=== PATIENT | male | born 1955 | race Caucasian/White ===

== ENCOUNTER 2017-08-19 10:47 | Outpatient (CLI) | payer OTHER ==
[~2017-08-19] VITALS: Ht 167.6 cm; Wt 90.7 kg
[2017-08-19] MEDS ORDERED: SUMA1TAB PO (14:10)
[2017-08-19] MEDS ORDERED: VNL75T PO (14:10)
[2017-08-19] MEDS ORDERED: FENO134C PO (14:10)
[2017-08-19] MEDS ORDERED: PRD20T PO (14:10)
== END 2017-08-19 14:15 ==
LOC: PREOP 10:47
PROVIDERS: ATTEND Internal Medicine
DX: Z01.818 Encounter for other preprocedural examination (principal); Z12.11 Encounter for screening for malignant neoplasm of colon

== ENCOUNTER 2017-08-22 08:02 | Day surgery (SDC) | payer OTHER ==
--- NOTE | 2017-08-20 09:09 | HISTORY AND PHYSICAL ---
DATE OF SERVICE: COLONOSCOPY HISTORY AND PHYSICAL HISTORY OF PRESENT ILLNESS: The patient is a 61-year-old white male, who presented to the office on the for followup of Meniere's disease. It has been a little over 10 years since his last screening colonoscopy that occurred in 2006. He had a normal evaluation at that time. He reports that he has had some occasional fullness in his right ear, little bit of a popping noise, but has not had any significant perceived decline in hearing, has had no vertigo or sustained tinnitus. He has been under some stress having to work, nearly doubled time exceeding 80 hours per week for the past several months and has not had the time to engage any regular exercise. Although, he does move at work a fair amount. They have hired some additional help as they have become short staffed and his work load is back the usual full-time employment. He denies any increased dyspnea on exertion over baseline, chest discomfort and has had no syncope or presyncope. He denies abdominal pain, change in appetite, weight loss or weight gain, constipation, diarrhea, bright red blood per rectum or melena. PHYSICAL EXAMINATION: GENERAL: Reveals a well appearing white male, well kempt, normal affect, in no acute distress. VITAL SIGNS: Blood pressure 126/84. HEENT: Did reveal right-sided cerumen, occlusion. He underwent ear lavage with normal TMs and ear canals post-procedure. NECK: Revealed no JVD, adenopathy or bruits. CHEST: Clear. CARDIOVASCULAR: Reveals a regular rate and rhythm without murmur, S3 or S4. ABDOMEN: Soft, supple without mass, organomegaly or tenderness. EXTREMITIES: Reveal no cyanosis, clubbing or edema. SKIN: Evaluation revealed no suspicious nevi. ASSESSMENT AND PLAN: 1. Cerumen impaction right ear which may have been the cause of hearing changes that he had noted intermittently. 2. The patient was set up for screening colonoscopy 08/22/2017. Prep instructions with Suprep kit were given and questions were answered. 3. Meniere's disease, clinically stable. We will see him back in 6 months for yearly wellness evaluation and we will obtain a chemistry panel, lipid panel and a PSA at that time. Job ID: [id number] DocumentID: [id number] Dictated Date: 08/19/2017 10:50:10 Benefits Specialist Recruiter Date: 08/19/2017 11:44:08 Dictated By: IVONE MARIA MD MTDD
[~2017-08-22] VITALS: Ht 167.6 cm; Wt 90.7 kg
[~2017-08-22 08:02] MED LIST: FENO134C PO; PRD20T PO; SUMA1TAB PO; VNL75T PO
[2017-08-22] MEDS ORDERED: 1/2 NS IV SOLUTION 1,000 ML IV STA (08:31)
[2017-08-22] MEDS ORDERED: 1/2 NS IV SOLUTION 1,000 ML IV ONE (08:33)
[2017-08-22 08:45] VITALS: BP 132/90
[2017-08-22] MEDS ORDERED: LIDOCAINE JELLY 2% (XYLOCAINE) 5 ML TUBE MM PRN (08:45)
[2017-08-22] MEDS ORDERED: MIDAZOLAM 2 MG/2 ML (VERSED) VIAL IVP PRN (08:45)
--- NOTE | 2017-08-22 08:46 | Pre-Op Note & Conscious Sedat ---
Pre-Operative Progress Note H&P Reviewed The H&P was reviewed, patient examined and no changes noted. Date H&P Reviewed: Aug 22, 2017 Time H&P Reviewed: 08:45 Conscious Sedation Pre-Proced ASA Class: 1 Airway Mallampati Classification: ([place] appropriate class) I. II. III, IV Lungs Heart ASA score ASA 1: a normal healthy patient ASA 2: a patient with a mild systemic disease (mid diabetes, controlled hypertension, obesity ASA 3: a patient with a severe systemic disease that limits activity (angina , COPD, prior Myocardial infarction) ASA 4: a patient with an incapacitating disease that is a constant threat to life (CHF, renal failure) ASA 5: a moribund patient not expected to survive 24 hrs. (ruptured aneurysm) ASA 6: a declared brain patient whose organs are being harvested. For emergent operations, add the letter E after the classification Grade 2 Sedation Plan: Analgesia, Amnesia, Plan communicated to team members, Discussed options with patient/fam, Discussed risks with patient/fam Note The patient is an appropriate candidate to undergo the planned procedure, sedation, and anesthesia. The patient immediately re-assessed prior to indication. IVONE MARIA MD Aug 22, 2017 08:46
[2017-08-22] MEDS ORDERED: LIDOCAINE JELLY 2% (XYLOCAINE) 5 ML TUBE ONE (10:03)
[2017-08-22] MEDS ORDERED: fentaNYL INJECTION 100 MCG/2 ML AMP ONE (10:03)
[2017-08-22] MEDS ORDERED: MIDAZOLAM 2 MG/2 ML (VERSED) VIAL ONE ×2 (10:03)
[2017-08-22] MEDS: fentaNYL INJECTION 100 MCG/2 ML AMP IVP PRN ×2 (10:40→10:55)
[2017-08-22 11:20] VITALS: BP 118/73
[2017-08-22 11:55] VITALS: BP 131/93
[2017-08-22 11:59] VITALS: BP 131/93
--- NOTE | 2017-08-22 23:31 | OPERATIVE REPORT ---
DATE OF SERVICE: COLONOSCOPY SUMMARY INDICATION FOR THE PROCEDURE: Screening colonoscopy. The patient was placed in the left lateral decubitus position. Prior to undergoing colonoscopy, digital rectal evaluation was performed. Anal sphincter tone was normal and the perianal reflexes intact. The prostate was normal in size, anodular and nontender digital inspection. No abnormalities, no digital inspection of the distal rectal vault and anal canal. The colonoscope was then inserted into the rectum and under direct visualization advanced to the cecum. The cecum was identified by identification of the ileocecal valve and cecal strap. Photographic documentation was obtained. A careful inspection was made as the colonoscope was withdrawn. The patient tolerated the procedure well. FINDINGS: There was no evidence for internal or external hemorrhoids and the rectum was unremarkable. The sigmoid colon, descending colon as well as splenic flexure are unremarkable. Present in the middle transverse colon with some appearance to the mucosa that with air insufflation and monitoring did not change compared more normal looking mucosa adjacent. There was no inflammation change, it was concerning for an early flat adenoma. It was photographed and biopsied and ablated and submitted for histopathology. Remainder of the transverse colon, hepatic flexure, ascending colon and cecum were unremarkable. ASSESSMENT: Questionable flat adenoma noted in the mid transverse colon was present with otherwise normal colonoscopy to cecum. We will have to await histopathology report before advocating future colon screening interval. Job ID: [id number] DocumentID: [id number] Dictated Date: 08/22/2017 11:42:34 Torpedo Specialist Date: 08/22/2017 23:30:45 Dictated By: IVONE MARIA MD
== END 2017-08-22 12:01 | disposition home or self-care (01) ==
LOC: ENDO 08:02
PROVIDERS: ATTEND Internal Medicine
DX: Z12.11 Encounter for screening for malignant neoplasm of colon (principal); K63.89 Other specified diseases of intestine

== ENCOUNTER → 2020-07-24 | Outpatient (CLI) | payer BC, OTHER ==
[~2020-07-24] MED LIST changes: -SUMA1TAB PO; +SUMA1TAB12 PO
--- NOTE | 2020-07-24 09:00 | Diagnostic Imaging Report ---
PROCEDURE: MR imaging cervical spine without contrast. TECHNIQUE: Multiplanar, multisequence MR imaging of the cervical spine was performed without contrast. DATE: July 24, 2020. COMPARISON: None. INDICATION: 64-year-old male, right arm weakness, numbness, and pain. Neck pain. FINDINGS: There is a cervical dextrocurvature. There is grade 1 retrolisthesis of C5 on C6. There is no evidence of a diffuse marrow infiltrating or replacing process. There is no identified abnormal signal in the imaged spinal cord. There is severe disc height loss at C5-C6. There are mild disc degenerative changes of the upper thoracic spine. C2-C3: There is no disc bulge. There are left facet degenerative changes. There is moderate left foraminal narrowing. There is no spinal canal stenosis. C3-C4: There is no disc bulge. There are advanced left facet degenerative changes. There is severe left foraminal narrowing. There is no spinal canal stenosis. C4-C5: There is no disc bulge. There are right uncovertebral and right facet degenerative changes. There are also left facet degenerative changes. There is moderate to severe bilateral foraminal narrowing. There is no spinal canal stenosis. C5-C6: There is a posterior disc/osteophyte complex. There are right uncovertebral and facet degenerative changes. There is severe right and mild left foraminal narrowing. There is severe spinal canal stenosis. C6-C7: There is no disc bulge. The uncovertebral and facet joints are unremarkable. There is a right-sided perineural cyst. There is no foraminal narrowing. There is no spinal canal stenosis. C7-T1: There is no disc bulge. The uncovertebral and facet joints are unremarkable. There is no foraminal narrowing. There is no spinal canal stenosis. IMPRESSION: 1. Cervical dextrocurvature and grade 1 retrolisthesis of C5 on C6. 2. Multilevel disc, uncovertebral, and facet degenerative changes of the cervical spine with findings most notable at C5-C6 as detailed specifically level by level above. Dictated by: Dictated on workstation # [id number]
== END ==
LOC: RAD 08:00
PROVIDERS: ATTEND Nurse Practitioner Family
DX: M48.02 Spinal stenosis, cervical region (principal); M43.12 Spondylolisthesis, cervical region; M43.8X2 Other specified deforming dorsopathies, cervical region; M47.812 Spondylosis without myelopathy or radiculopathy, cervical region; G96.191 Perineural cyst; M50.322 Other cervical disc degeneration at C5-C6 level
CPT/HCPCS: 72141

== ENCOUNTER → 2021-06-27 | Outpatient (CLI) | payer BC | LOC: LABNPT 07:02 | PROVIDERS: ATTEND Internal Medicine | DX: R50.9 Fever, unspecified (principal); R05.9 Cough, unspecified; Z20.822 Contact with and (suspected) exposure to COVID-19 | CPT/HCPCS: 87635 ==